=== PATIENT | female | born 1935 | race Caucasian/White ===

== ENCOUNTER 2021-01-10 10:22 | Emergency (ER) | payer OTHER, SELFPAY ==
[2021-01-10] MEDS ORDERED: Fentanyl 100 MCG/2 ML VIAL ONE (11:18)
[2021-01-10] MEDS ORDERED: Ketorolac Tromethamine 15 MG/ML VIAL ONE (11:19)
[2021-01-10 11:32] LABS: #Basophils 0.1 10x3/uL (0.0-0.2); #Monocytes 1.4 10x3/uL (0.0-1.1); #Neutrophils 13.8 10x3/uL (1.5-8.4); %Basophils 0.3 % (0.0-2.0); %Eosinophils 0.2 % (0.0-6.0); %Lymphocytes 6.8 % (18.0-47.0); %Monocytes 8.5 % (0.0-10.0); %Neutrophils 83.5 % (40.0-75.0); Hemoglobin 7.9 g/dL (12.0-15.5); Mean Corpuscular HGB CONC 28.5 g/dL (32.0-36.0); Mean Corpuscular Hemoglobin 18.4 pg (27.0-33.0); Mean Corpuscular Volume 64.6 fl (81.6-98.3); Mean Platelet Volume 8.8 fl (7.4-10.4); Platelet Count 333 10x3/uL (150-450); RBC Distribution Width 19.3 % (11.5-14.5); Red Blood Cell (RBC) Count 4.29 10x6/uL (3.90-5.03); White Blood Cell (WBC) Count 16.5 10x3/uL (3.5-10.5)
[2021-01-10 11:48] LABS: ALT (SGPT) 13 U/L (8-55); AST (SGOT) 12 U/L (5-34); Alkaline Phosphatase 73 U/L (40-110); Anion Gap 17 mmol/L (10-20); BUN (Urea Nitrogen) 14 mg/dL (9.8-20.1); Bilirubin, Total 0.7 mg/dL (0.2-1.2); Calc. Creatinine Clearance 0 mL/min (70-130); Calcium 9.7 mg/dL (7.8-10.44); Carbon Dioxide 20 mmol/L (23-31); Chloride 105 mmol/L (98-107); Globulin 3.6 g/dL (2.4-3.5); Glucose 126 mg/dL (83-110); Potassium 3.8 mmol/L (3.5-5.1); Protein, Total 7.6 g/dL (5.8-8.1); Sodium 138 mmol/L (136-145)
[2021-01-10 12:03] LABS: Anisocytosis SLIGHT = 6-15 cells (100X) (0-5/hpf); Hypochromia SLIGHT = 6-15 cells (100X) (0-5/hpf); Microcytosis MODERATE=15-30 cells (100X) (0-5/hpf); Ovalocytes SLIGHT = 2-5 cells (100X) (0-1/hpf); Polychromasia SLIGHT = 2-3 cells (100X) (0-2/hpf)
[2021-01-10 12:05] LABS: Platelet Morphology Comment Appears Adequate
[2021-01-10 12:06] LABS: Reflex for Review?? YES
[2021-01-10] MEDS ORDERED: Enoxaparin Sodium 80 MG/0.8 ML SYRINGE ONE (13:14)
== END 2021-01-10 14:21 | disposition short-term general hospital (02) ==
LOC: CSHERS 10:22
DX: S22.32XA Fracture of one rib, left side, initial encounter for closed fracture (principal); I26.99 Other pulmonary embolism without acute cor pulmonale; D64.9 Anemia, unspecified; W01.10XA Fall on same level from slipping, tripping and stumbling with subsequent striking against unspecified object, initial encounter
CPT/HCPCS: 71260; 74177; 80053; 85025; 85060; 86850; 86900; 86901; 96372; 96374; 96375; J1650; J1885; J3010

== ENCOUNTER 2022-01-17 10:42 | Outpatient (CLI) | payer MEDICARE ==
[2022-01-17 11:33] LABS: Mean Corpuscular HGB CONC 33.2 g/dL (32.0-36.0); Mean Corpuscular Hemoglobin 30.4 pg (27.0-33.0); Mean Corpuscular Volume 91.4 fl (81.6-98.3); Mean Platelet Volume 8.7 fl (7.4-10.4); Platelet Count 235 10x3/uL (150-450); RBC Distribution Width 13.9 % (11.5-14.5); Red Blood Cell (RBC) Count 4.28 10x6/uL (3.90-5.03)
[2022-01-17 11:36] LABS: INR-International Normal Ratio 0.9; PTT 29.4 sec (22.0-33.0)
[2022-01-17 11:41] LABS: Anion Gap 14 mmol/L (10-20); BUN (Urea Nitrogen) 17 mg/dL (9.8-20.1); Calc. Creatinine Clearance 0 mL/min (70-130); Calcium 9.8 mg/dL (7.8-10.44); Carbon Dioxide 25 mmol/L (23-31); Chloride 106 mmol/L (98-107); Glucose 84 mg/dL (83-110); Potassium 4.3 mmol/L (3.5-5.1); Sodium 141 mmol/L (136-145)
[2022-01-17 21:43] LABS: SARS-CoV-2 PCR by NAA Not Detected (NotDetected)
== END 2022-01-17 10:43 | disposition home or self-care (01) ==
LOC: CSHLAB 10:42
PROVIDERS: ATTEND Specialist
DX: Z01.818 Encounter for other preprocedural examination (principal); Z20.822 Contact with and (suspected) exposure to COVID-19
CPT/HCPCS: 80048; 85027; 85610; 85730; 93005; 93010; U0003; U0005

== ENCOUNTER → 2022-01-20 | Day surgery (SDC) | payer MEDICARE ==
[~2022-01-20] MED LIST: Adenosine 6 MG/2 ML VIAL ONE; Ascorbic Acid 500 mg Chewable Tablet ONE; Aspirin 325 MG TAB ONE; Atropine Sulfate 0.4 mg/1 ml Vial ONE; Clopidogrel Bisulfate 300 MG TAB ONE; Fentanyl 100 MCG/2 ML VIAL ONE; Heparin 10,000 UNITS/ 10 ML VIAL ONE; Iopamidol 300 61% 100 ML VIAL FS ONE; Lidocaine 1% PF 5 ML VIAL ONE; Midazolam HCl 2 mg/2 ml Vial ONE; Nitroglycerin 50 MG/250 ML BOT 250 ML ONE; Ondansetron PF 4 MG/2 ML Vial ONE
== END ==
LOC: CSHSDC 08:55
PROVIDERS: ATTEND Specialist
DX: I11.0 Hypertensive heart disease with heart failure (principal); I50.32 Chronic diastolic (congestive) heart failure; I25.118 Atherosclerotic heart disease of native coronary artery with other forms of angina pectoris; E78.2 Mixed hyperlipidemia; Z95.1 Presence of aortocoronary bypass graft; Z95.5 Presence of coronary angioplasty implant and graft; Z79.899 Other long term (current) drug therapy; Z79.82 Long term (current) use of aspirin
CPT/HCPCS: 92978; 92979; 93459; C1725 ×2; C1753; C1760; C1769; C1874; C1887; C9600; 92928; 99152; 99153; J0153; J0461; J1644; J2250; J2405; J3010

== ENCOUNTER 2022-11-01 17:37 | Inpatient (IN) | payer MEDICARE ==
[2022-11-01 18:20] LABS: #Neutrophils 6.3 10x3/uL (1.5-8.4); %Basophils 0.5 % (0.0-2.0); %Eosinophils 0.1 % (0.0-6.0); %Lymphocytes 6.4 % (18.0-47.0); %Neutrophils 79.6 % (40.0-75.0); Hemoglobin 12.8 g/dL (12.0-15.5); Mean Corpuscular HGB CONC 33.2 g/dL (32.0-36.0); Mean Corpuscular Hemoglobin 29.6 pg (27.0-33.0); Mean Corpuscular Volume 89.4 fl (81.6-98.3); Mean Platelet Volume 8.7 fl (7.4-10.4); Platelet Count 216 10x3/uL (150-450); RBC Distribution Width 13.2 % (11.5-14.5); Red Blood Cell (RBC) Count 4.32 10x6/uL (3.90-5.03); White Blood Cell (WBC) Count 7.9 10x3/uL (3.5-10.5)
[2022-11-01 18:32] LABS: INR-International Normal Ratio 0.9; Prothrombin Time 10.3 sec (9.5-12.1)
[2022-11-01 18:33] LABS: Magnesium 1.8 mg/dL (1.6-2.6)
[2022-11-01 18:38] LABS: ALT (SGPT) 19 U/L (8-55); AST (SGOT) 31 U/L (5-34); Acetaminophen Less than 10.0 mcg/mL (10.0-30.0); Alcohol Less than 10 mg/dL (Less than 10); Alkaline Phosphatase 52 U/L (40-110); Anion Gap 15 mmol/L (10-20); BUN (Urea Nitrogen) 12 mg/dL (9.8-20.1); Bilirubin, Total 0.9 mg/dL (0.2-1.2); CK (CPK) 808 U/L (29-168); Calc. Creatinine Clearance 0 mL/min (70-130); Calcium 9.6 mg/dL (7.8-10.44); Carbon Dioxide 22 mmol/L (23-31); Chloride 106 mmol/L (98-107); Estimated GFR 64; Globulin 3.1 g/dL (2.4-3.5); Glucose 108 mg/dL (83-110); Potassium 3.3 mmol/L (3.5-5.1); Protein, Total 7.1 g/dL (5.8-8.1); Salicylate Less than 8.0 mg/dL (15.0-30.0); Sodium 140 mmol/L (136-145)
[2022-11-01 19:03] LABS: CKMB 3.8 ng/mL (0-6.6)
[2022-11-01 19:18] LABS: SARS-CoV-2 NAA Rapid Test DETECTED (NotDetected)
[2022-11-01 20:11] LABS: Bilirubin Neg (Negative); Blood, Urine 25 (Negative); Clarity Clear (Clear); Glucose, Urine (Dipstick) Normal (Negative); Ketone, Urine 50 mg/dL (Negative); Leukocyte 500 (Negative); Nitrite Negative (Negative); Protein, Urine (Dipstick) 15 mg/dl (Neg-Trace); Specific Gravity, Urine 1.025 (1.005-1.030); Urobilinogen Normal mg/dL (Less than 2)
[2022-11-01 20:21] LABS: Bacteria/HPF 3+ HPF (None Seen); Mucous/LPF 3+ LPF (<2+); RBC/HPF 0-3 HPF (0-3); Squamous Epithelial 0-3 HPF (0-3); Transitional Epithelial 0-3 HPF (None Seen)
[2022-11-01] MEDS ORDERED: cefTRIAXone\\ROCEPHIN 1 GM VIAL ONE (20:37)
[2022-11-01] MEDS ORDERED: Acetaminophen 325 MG TAB ONE (21:28)
[2022-11-01] MEDS ORDERED: Ibuprofen 200 MG TAB ONE (21:55)
[2022-11-01] MEDS ORDERED: Acetaminophen 325 MG TAB PO PRN (22:09)
[2022-11-01 22:15] LABS: CKMB 2.8 ng/mL (0-6.6)
[2022-11-01] MEDS ORDERED: cefTRIAXone\\ROCEPHIN 1 GM in Sodium Chloride 0.9% 100 ML IVPB SCH (22:15)
[2022-11-01] MEDS ORDERED: Ascorbic Acid 500 mg Chewable Tablet PO SCH (22:15)
[2022-11-01] MEDS ORDERED: Aspirin 81 mg Enteric Coated Tablet PO SCH (22:15)
[2022-11-01] MEDS ORDERED: PAXLOVID REQUEST IVPB PRN (22:21)
[2022-11-01] MEDS ORDERED: Cholecalciferol 1,000 UNITS (25 MCG) TAB PO SCH (22:30)
[2022-11-01 23:09] VITALS: BMI 25.9
[2022-11-02] MEDS: Potassium Chloride 20 MEQ TAB PO SCH ×2 (00:10→01:11)
[2022-11-02] MEDS: Lactated Ringer's 1,000 ML IV SCH ×3 (00:10→17:26)
[2022-11-02 05:37] LABS: Hemoglobin 11.4 g/dL (12.0-15.5); Mean Corpuscular HGB CONC 32.7 g/dL (32.0-36.0); Mean Corpuscular Hemoglobin 29.5 pg (27.0-33.0); Mean Corpuscular Volume 90.4 fl (81.6-98.3); Mean Platelet Volume 9.1 fl (7.4-10.4); Platelet Count 176 10x3/uL (150-450); RBC Distribution Width 13.4 % (11.5-14.5); Red Blood Cell (RBC) Count 3.86 10x6/uL (3.90-5.03); White Blood Cell (WBC) Count 5.9 10x3/uL (3.5-10.5)
[2022-11-02 05:44] LABS: Anion Gap 13 mmol/L (10-20); BUN (Urea Nitrogen) 14 mg/dL (9.8-20.1); Calc. Creatinine Clearance 62 mL/min (70-130); Calcium 8.8 mg/dL (7.8-10.44); Carbon Dioxide 20 mmol/L (23-31); Chloride 111 mmol/L (98-107); Estimated GFR 77; Glucose 84 mg/dL (83-110); Potassium 4.1 mmol/L (3.5-5.1); Sodium 140 mmol/L (136-145)
[2022-11-02 07:33] LABS: MDiff Complete? YES
[2022-11-02 07:37] LABS: Lymphocytes 16 % (21-51); Monocytes 11 % (0-10); Neutrophil 73 % (42-75)
[2022-11-02 07:38] LABS: Platelet Morphology Comment Appears Adequate; RBC Morphology Normal
[2022-11-02] MEDS ORDERED: Levothyroxine Sodium 50 MCG TAB PO SCH (08:00)
[2022-11-02] MEDS: Ascorbic Acid 500 mg Chewable Tablet PO SCH (08:17)
[2022-11-02] MEDS: Cholecalciferol 1,000 UNITS (25 MCG) TAB PO SCH (08:17)
[2022-11-02] MEDS: Zinc Sulfate 220 MG CAP PO SCH (08:17)
[2022-11-02] MEDS: Ezetimibe 10 MG TAB PO SCH (08:17)
[2022-11-02] MEDS: NIRMATRELVIR 150 MG/RITONAVIR 100 MG PO SCH ×2 (08:18→21:25)
[2022-11-02] MEDS: Aspirin 81 mg Enteric Coated Tablet PO SCH (08:18)
[2022-11-02] MEDS ORDERED: NIRMATRELVIR 150 MG/RITONAVIR 100 MG PO SCH (09:00)
[2022-11-02] MEDS: cefTRIAXone\\ROCEPHIN 2 GM in Sodium Chloride 0.9% 100 ML IVPB SCH (21:24)
[2022-11-03] MEDS: Lactated Ringer's 1,000 ML IV SCH ×2 (02:38→09:39)
[2022-11-03] MEDS: Levothyroxine Sodium 50 MCG TAB PO SCH (06:30)
[2022-11-03] MEDS: Ascorbic Acid 500 mg Chewable Tablet PO SCH (09:38)
[2022-11-03] MEDS: Aspirin 81 mg Enteric Coated Tablet PO SCH (09:38)
[2022-11-03] MEDS: Cholecalciferol 1,000 UNITS (25 MCG) TAB PO SCH (09:38)
[2022-11-03] MEDS: Zinc Sulfate 220 MG CAP PO SCH (09:39)
[2022-11-03] MEDS: Ezetimibe 10 MG TAB PO SCH (09:39)
[2022-11-03] MEDS: NIRMATRELVIR 150 MG/RITONAVIR 100 MG PO SCH ×2 (09:39→21:29)
[2022-11-03] MEDS: cefTRIAXone\\ROCEPHIN 2 GM in Sodium Chloride 0.9% 100 ML IVPB SCH (21:28)
[2022-11-03 23:58] VITALS: TEMP 98.2
[2022-11-04] MEDS: Levothyroxine Sodium 50 MCG TAB PO SCH (05:21)
[2022-11-04 06:07] LABS: Anion Gap 13 mmol/L (10-20); BUN (Urea Nitrogen) 8 mg/dL (9.8-20.1); CRP (Inflammatory) 1.03 mg/dL (= or < 0.5); Calc. Creatinine Clearance 62 mL/min (70-130); Carbon Dioxide 25 mmol/L (23-31); Chloride 106 mmol/L (98-107); Estimated GFR 77; Glucose 87 mg/dL (83-110); Potassium 3.3 mmol/L (3.5-5.1); Sodium 141 mmol/L (136-145)
[2022-11-04 06:09] LABS: #Eosinphils 0.4 10x3/uL (0.0-0.5); #Monocytes 0.6 10x3/uL (0.0-1.1); #Neutrophils 3.2 10x3/uL (1.5-8.4); %Basophils 0.5 % (0.0-2.0); %Eosinophils 7.4 % (0.0-6.0); %Lymphocytes 25.4 % (18.0-47.0); %Neutrophils 56.3 % (40.0-75.0); Hemoglobin 12.4 g/dL (12.0-15.5); Mean Corpuscular Hemoglobin 29.5 pg (27.0-33.0); Mean Corpuscular Volume 89.3 fl (81.6-98.3); Mean Platelet Volume 8.7 fl (7.4-10.4); Platelet Count 197 10x3/uL (150-450); Red Blood Cell (RBC) Count 4.21 10x6/uL (3.90-5.03); White Blood Cell (WBC) Count 5.7 10x3/uL (3.5-10.5)
[2022-11-04] MEDS: Aspirin 81 mg Enteric Coated Tablet PO SCH (09:21)
[2022-11-04] MEDS: Ezetimibe 10 MG TAB PO SCH (09:21)
[2022-11-04] MEDS: Cholecalciferol 1,000 UNITS (25 MCG) TAB PO SCH (09:21)
[2022-11-04] MEDS: NIRMATRELVIR 150 MG/RITONAVIR 100 MG PO SCH (09:21)
[2022-11-04] MEDS: Ascorbic Acid 500 mg Chewable Tablet PO SCH (09:21)
[2022-11-04] MEDS: Zinc Sulfate 220 MG CAP PO SCH (09:21)
[2022-11-04 12:34] VITALS: BP 132/71
[2022-11-07] MEDS ORDERED: Clopidogrel Bisulfate 75 MG TAB PO SCH (09:00)
[2022-11-07] MEDS ORDERED: Atorvastatin Calcium 40 MG TAB PO SCH (09:00)
== END 2022-11-04 12:21 | disposition home or self-care (01) | DRG 689 ==
LOC: CSHERS 17:37 → CSHTELE 22:11
PROVIDERS: ADMIT Family Medicine; ATTEND Internal Medicine
PROC: 8E0ZXY6 Isolation (ICD-10-PCS; principal; 2022-11-01)
PROC: XW0DXF5 Introduction of Other New Technology Therapeutic Substance into Mouth and Pharynx, External Approach, New Technology Group 5 (ICD-10-PCS; 2022-11-02)
DX: N10 Acute pyelonephritis (principal); U07.1 COVID-19; I50.32 Chronic diastolic (congestive) heart failure; I25.10 Atherosclerotic heart disease of native coronary artery without angina pectoris; E87.6 Hypokalemia; I11.0 Hypertensive heart disease with heart failure; Z88.0 Allergy status to penicillin; Z91.040 Latex allergy status; Z79.899 Other long term (current) drug therapy; Z79.890 Hormone replacement therapy; Z90.49 Acquired absence of other specified parts of digestive tract; Z95.1 Presence of aortocoronary bypass graft; Z95.5 Presence of coronary angioplasty implant and graft; Z86.711 Personal history of pulmonary embolism; Z87.891 Personal history of nicotine dependence; Z80.0 Family history of malignant neoplasm of digestive organs; Z79.02 Long term (current) use of antithrombotics/antiplatelets; E78.00 Pure hypercholesterolemia, unspecified
CPT/HCPCS: 36415; 36416; 51701; 70450; 71045; 80048; 80053; 80307; 81003; 81015; 82550; 82553; 83605; 83735; 83880; 84145; 84443; 84484; 85025; 85610; 85730; 86140; 87040; 87086; 93005; 93010; 93306; 96365; J0696; J1650; J3490; J7120; U0002

== ENCOUNTER 2023-04-04 19:28 | Inpatient (IN) | payer MEDICARE ==
[2023-04-04 19:54] LABS: #Basophils 0.1 10x3/uL (0.0-0.2); #Monocytes 0.8 10x3/uL (0.0-1.1); #Neutrophils 8.5 10x3/uL (1.5-8.4); %Basophils 0.5 % (0.0-2.0); %Eosinophils 0.4 % (0.0-6.0); %Lymphocytes 8.2 % (18.0-47.0); %Monocytes 7.8 % (0.0-10.0); %Neutrophils 82.6 % (40.0-75.0); Hematocrit 38.6 % (34.9-44.5); Hemoglobin 12.3 g/dL (12.0-15.5); Mean Corpuscular HGB CONC 31.9 g/dL (32.0-36.0); Mean Corpuscular Hemoglobin 25.8 pg (27.0-33.0); Mean Corpuscular Volume 80.9 fl (81.6-98.3); Mean Platelet Volume 8.8 fl (7.4-10.4); Platelet Count 330 10x3/uL (150-450); RBC Distribution Width 15.2 % (11.5-14.5); Red Blood Cell (RBC) Count 4.77 10x6/uL (3.90-5.03); White Blood Cell (WBC) Count 10.3 10x3/uL (3.5-10.5)
[2023-04-04 20:04] LABS: ALT (SGPT) 11 U/L (8-55); AST (SGOT) 18 U/L (5-34); Albumin 4.2 g/dL (3.4-4.8); Alkaline Phosphatase 70 U/L (40-110); Anion Gap 18 mmol/L (10-20); BUN (Urea Nitrogen) 9 mg/dL (9.8-20.1); Bilirubin, Total 1.1 mg/dL (0.2-1.2); Calc. Creatinine Clearance 0 mL/min (70-130); Calcium 9.8 mg/dL (7.8-10.44); Carbon Dioxide 23 mmol/L (23-31); Chloride 101 mmol/L (98-107); Estimated GFR 70; Globulin 3.7 g/dL (2.4-3.5); Glucose 126 mg/dL (83-110); Potassium 4.1 mmol/L (3.5-5.1); Protein, Total 7.9 g/dL (5.8-8.1); Sodium 138 mmol/L (136-145)
[2023-04-04 20:26] LABS: CKMB 1.4 ng/mL (0-6.6)
[2023-04-04] MEDS ORDERED: Ondansetron PF 4 MG/2 ML Vial IVP PRN (21:24)
[2023-04-04 21:46] LABS: Troponin I 0.045 ng/mL (< 0.028)
[2023-04-04 23:06] VITALS: BMI 24.3
[2023-04-04 23:40] LABS: Lactic Acid 1.1 mmol/L (0.5-2.2)
[2023-04-04] MEDS ORDERED: cefTRIAXone\\ROCEPHIN 1 GM in Sodium Chloride 0.9% 100 ML IVPB SCH (23:59)
[2023-04-05 02:41] LABS: Bilirubin Neg (Negative); Blood, Urine Negative (Negative); Clarity Clear (Clear); Glucose, Urine (Dipstick) Normal (Negative); Ketone, Urine 15 mg/dL (Negative); Leukocyte Negative (Negative); Nitrite Negative (Negative); Protein, Urine (Dipstick) 15 mg/dl (Neg-Trace); pH, Urine 6.5 (5.0-9.0)
[2023-04-05 02:49] LABS: Bacteria/HPF None Seen HPF (None Seen); RBC/HPF 0-3 HPF (0-3); Squamous Epithelial 0-3 HPF (0-3); WBC/HPF 0-3 HPF (0-3)
[2023-04-05 03:31] LABS: #Eosinphils 0.1 10x3/uL (0.0-0.5); #Neutrophils 6.9 10x3/uL (1.5-8.4); %Basophils 0.4 % (0.0-2.0); %Eosinophils 0.8 % (0.0-6.0); %Lymphocytes 11.2 % (18.0-47.0); %Monocytes 10.9 % (0.0-10.0); %Neutrophils 76.4 % (40.0-75.0); Hematocrit 36.1 % (34.9-44.5); Hemoglobin 11.4 g/dL (12.0-15.5); Mean Corpuscular HGB CONC 31.6 g/dL (32.0-36.0); Mean Corpuscular Hemoglobin 25.9 pg (27.0-33.0); Platelet Count 298 10x3/uL (150-450); RBC Distribution Width 15.2 % (11.5-14.5)
[2023-04-05 03:36] LABS: ALT (SGPT) 8 U/L (8-55); AST (SGOT) 13 U/L (5-34); Albumin 3.8 g/dL (3.4-4.8); Alkaline Phosphatase 61 U/L (40-110); Anion Gap 15 mmol/L (10-20); BUN (Urea Nitrogen) 9 mg/dL (9.8-20.1); Bilirubin, Total 0.9 mg/dL (0.2-1.2); Calc. Creatinine Clearance 58 mL/min (70-130); Calcium 9.7 mg/dL (7.8-10.44); Carbon Dioxide 27 mmol/L (23-31); Chloride 103 mmol/L (98-107); Estimated GFR 73; Globulin 3.5 g/dL (2.4-3.5); Glucose 116 mg/dL (83-110); Potassium 3.4 mmol/L (3.5-5.1); Protein, Total 7.3 g/dL (5.8-8.1); Sodium 142 mmol/L (136-145)
[2023-04-05 03:44] LABS: Troponin I 0.045 ng/mL (< 0.028)
[2023-04-05] MEDS: Levothyroxine Sodium 50 MCG TAB PO SCH (05:36)
[2023-04-05] MEDS ORDERED: Potassium Chloride 20 MEQ TAB PO SCH (08:00)
[2023-04-05] MEDS: Ezetimibe 10 MG TAB PO SCH (08:59)
[2023-04-05] MEDS: Cetirizine HCl 5 MG/5 ML UDCUP PO SCH (08:59)
[2023-04-05] MEDS: Famotidine 20 MG TAB PO SCH ×2 (08:59→20:26)
[2023-04-05] MEDS: Atenolol 25 MG TAB PO SCH ×2 (08:59→20:26)
[2023-04-05 10:53] LABS: Troponin I 0.041 ng/mL (< 0.028)
[2023-04-05] MEDS: Potassium Chloride 20 MEQ TAB PO SCH (16:28)
[2023-04-05] MEDS ORDERED: Morphine 2 MG/ML VIAL SLOW IVP PRN (16:51)
[2023-04-05] MEDS: HYDROcodone/Acetaminophen 5/325 mg Tablet PO PRN (19:32)
[2023-04-05] MEDS: Acetaminophen 325 MG TAB PO PRN (20:26)
[2023-04-06 04:25] LABS: Anion Gap 16 mmol/L (10-20); BUN (Urea Nitrogen) 11 mg/dL (9.8-20.1); Calc. Creatinine Clearance 57 mL/min (70-130); Calcium 9.8 mg/dL (7.8-10.44); Carbon Dioxide 26 mmol/L (23-31); Chloride 104 mmol/L (98-107); Estimated GFR 72; Glucose 92 mg/dL (83-110); Potassium 3.7 mmol/L (3.5-5.1); Sodium 142 mmol/L (136-145)
[2023-04-06 04:26] LABS: #Eosinphils 0.2 10x3/uL (0.0-0.5); #Monocytes 1.1 10x3/uL (0.0-1.1); #Neutrophils 5.8 10x3/uL (1.5-8.4); %Basophils 0.4 % (0.0-2.0); %Eosinophils 2.8 % (0.0-6.0); %Lymphocytes 15.9 % (18.0-47.0); %Monocytes 12.6 % (0.0-10.0); %Neutrophils 67.8 % (40.0-75.0); Hematocrit 35.4 % (34.9-44.5); Hemoglobin 11.1 g/dL (12.0-15.5); Mean Corpuscular HGB CONC 31.4 g/dL (32.0-36.0); Mean Corpuscular Hemoglobin 25.8 pg (27.0-33.0); Mean Corpuscular Volume 82.3 fl (81.6-98.3); Mean Platelet Volume 9.5 fl (7.4-10.4); Platelet Count 281 10x3/uL (150-450); RBC Distribution Width 15.4 % (11.5-14.5); White Blood Cell (WBC) Count 8.5 10x3/uL (3.5-10.5)
[2023-04-06] MEDS: HYDROcodone/Acetaminophen 5/325 mg Tablet PO PRN ×2 (05:30→14:46)
[2023-04-06] MEDS: Atenolol 25 MG TAB PO SCH ×2 (05:31→20:49)
[2023-04-06] MEDS: Levothyroxine Sodium 50 MCG TAB PO SCH (05:31)
[2023-04-06] MEDS: Famotidine 20 MG TAB PO SCH ×2 (08:55→20:49)
[2023-04-06] MEDS: Cetirizine HCl 5 MG/5 ML UDCUP PO SCH (08:55)
[2023-04-06] MEDS: Ezetimibe 10 MG TAB PO SCH (08:55)
[2023-04-06] MEDS: Spironolactone 25 MG TAB PO SCH (08:55)
[2023-04-06] MEDS: Potassium Chloride 20 MEQ TAB PO SCH (11:59)
[2023-04-06] MEDS: Dextrose 5 %-0.45 % NaCl 1,000 ML IV SCH (17:34)
[2023-04-06] MEDS: Acetaminophen 325 MG TAB PO PRN (20:49)
[2023-04-07] MEDS: HYDROcodone/Acetaminophen 5/325 mg Tablet PO PRN ×3 (04:21→18:48)
[2023-04-07] MEDS: Levothyroxine Sodium 50 MCG TAB PO SCH (05:52)
[2023-04-07] MEDS: Dextrose 5 %-0.45 % NaCl 1,000 ML IV SCH (06:06)
[2023-04-07] MEDS: Cetirizine HCl 5 MG/5 ML UDCUP PO SCH (08:45)
[2023-04-07] MEDS: Famotidine 20 MG TAB PO SCH ×2 (08:45→21:25)
[2023-04-07] MEDS: Ezetimibe 10 MG TAB PO SCH (08:45)
[2023-04-07] MEDS: Atenolol 25 MG TAB PO SCH ×2 (08:46→21:24)
[2023-04-07] MEDS: Losartan 25 MG TAB PO SCH (08:46)
[2023-04-07] MEDS: Spironolactone 25 MG TAB PO SCH (08:46)
[2023-04-07] MEDS: NIFEdipine XL 30 MG TAB PO SCH (09:27)
[2023-04-07] MEDS: Potassium Chloride 20 MEQ TAB PO SCH (12:07)
[2023-04-08] MEDS: Dextrose 5 %-0.45 % NaCl 1,000 ML IV SCH ×3 (01:26→21:48)
[2023-04-08] MEDS: Levothyroxine Sodium 50 MCG TAB PO SCH (05:46)
[2023-04-08] MEDS: NIFEdipine XL 30 MG TAB PO SCH (09:46)
[2023-04-08] MEDS: Famotidine 20 MG TAB PO SCH ×2 (09:46→20:21)
[2023-04-08] MEDS: Atenolol 25 MG TAB PO SCH ×2 (09:46→20:21)
[2023-04-08] MEDS: Ezetimibe 10 MG TAB PO SCH (09:46)
[2023-04-08] MEDS: Spironolactone 25 MG TAB PO SCH (09:47)
[2023-04-08] MEDS: Cetirizine HCl 5 MG/5 ML UDCUP PO SCH (09:47)
[2023-04-08] MEDS: Losartan 25 MG TAB PO SCH (09:47)
[2023-04-08] MEDS: HYDROcodone/Acetaminophen 5/325 mg Tablet PO PRN ×2 (10:33→17:44)
[2023-04-08] MEDS: Potassium Chloride 20 MEQ TAB PO SCH (12:37)
[2023-04-09 03:17] LABS: #Eosinphils 0.4 10x3/uL (0.0-0.5); #Monocytes 0.6 10x3/uL (0.0-1.1); #Neutrophils 3.4 10x3/uL (1.5-8.4); %Basophils 0.7 % (0.0-2.0); %Eosinophils 6.4 % (0.0-6.0); %Lymphocytes 22.5 % (18.0-47.0); %Monocytes 9.9 % (0.0-10.0); %Neutrophils 60.3 % (40.0-75.0); Hematocrit 38.6 % (34.9-44.5); Hemoglobin 12.1 g/dL (12.0-15.5); Mean Corpuscular HGB CONC 31.3 g/dL (32.0-36.0); Mean Corpuscular Hemoglobin 25.7 pg (27.0-33.0); Mean Corpuscular Volume 82.1 fl (81.6-98.3); Mean Platelet Volume 9.2 fl (7.4-10.4); Platelet Count 346 10x3/uL (150-450); RBC Distribution Width 14.7 % (11.5-14.5); White Blood Cell (WBC) Count 5.7 10x3/uL (3.5-10.5)
[2023-04-09 03:47] LABS: Anion Gap 15 mmol/L (10-20); BUN (Urea Nitrogen) 9 mg/dL (9.8-20.1); Calc. Creatinine Clearance 59 mL/min (70-130); Calcium 9.8 mg/dL (7.8-10.44); Carbon Dioxide 23 mmol/L (23-31); Chloride 102 mmol/L (98-107); Estimated GFR 76; Glucose 114 mg/dL (83-110); Potassium 3.2 mmol/L (3.5-5.1); Sodium 137 mmol/L (136-145)
[2023-04-09] MEDS: Levothyroxine Sodium 50 MCG TAB PO SCH (05:58)
[2023-04-09] MEDS: HYDROcodone/Acetaminophen 5/325 mg Tablet PO PRN ×3 (06:28→23:48)
[2023-04-09] MEDS ORDERED: Electrolyte Replacement Protocol 1 EACH FS SCH (08:15)
[2023-04-09] MEDS: Cetirizine HCl 5 MG/5 ML UDCUP PO SCH (08:49)
[2023-04-09] MEDS: Ezetimibe 10 MG TAB PO SCH (08:49)
[2023-04-09] MEDS: Losartan 25 MG TAB PO SCH (08:49)
[2023-04-09] MEDS: Atenolol 25 MG TAB PO SCH ×2 (08:50→21:34)
[2023-04-09] MEDS: Famotidine 20 MG TAB PO SCH ×2 (08:50→21:36)
[2023-04-09] MEDS: NIFEdipine XL 30 MG TAB PO SCH (08:50)
[2023-04-09] MEDS: Spironolactone 25 MG TAB PO SCH (08:50)
[2023-04-09] MEDS ORDERED: Potassium Chloride 20 MEQ TAB PO SCH (09:00)
[2023-04-09] MEDS ORDERED: Magnesium 2 GM/50 ML(in water) 2 GM in Premix Bag 1 BAG IVPB SCH (09:00)
[2023-04-09] MEDS ORDERED: Polyethylene Glycol 3350 17 GM Packet PO PRN (10:39)
[2023-04-09] MEDS: Potassium Chloride 20 MEQ TAB PO SCH (12:11)
[2023-04-09] MEDS: Dextrose 5 %-0.45 % NaCl 1,000 ML IV SCH ×2 (12:11→17:47)
[2023-04-09] MEDS: Thiamine 100 MG TAB PO SCH (21:34)
[2023-04-09] MEDS: Senokot S 8.6-50 MG TAB PO SCH (21:34)
[2023-04-09] MEDS: Multivit, Therapeutic 1 TAB PO SCH (21:36)
[2023-04-09] MEDS: Apixaban 5 MG TAB PO SCH (21:36)
[2023-04-09] MEDS: Folic Acid 1 MG TAB PO SCH (21:36)
[2023-04-09] MEDS: Cyanocobalamin (Vitamin B-12) 1,000 MCG TAB PO SCH (21:36)
[2023-04-10 03:35] LABS: #Eosinphils 0.3 10x3/uL (0.0-0.5); #Monocytes 0.7 10x3/uL (0.0-1.1); #Neutrophils 4.3 10x3/uL (1.5-8.4); %Basophils 0.4 % (0.0-2.0); %Lymphocytes 21.2 % (18.0-47.0); %Monocytes 9.9 % (0.0-10.0); %Neutrophils 63.4 % (40.0-75.0); Hematocrit 34.1 % (34.9-44.5); Hemoglobin 10.5 g/dL (12.0-15.5); Mean Corpuscular HGB CONC 30.8 g/dL (32.0-36.0); Mean Corpuscular Hemoglobin 25.3 pg (27.0-33.0); Mean Corpuscular Volume 82.2 fl (81.6-98.3); Mean Platelet Volume 9.2 fl (7.4-10.4); Platelet Count 332 10x3/uL (150-450); RBC Distribution Width 14.9 % (11.5-14.5); Red Blood Cell (RBC) Count 4.15 10x6/uL (3.90-5.03); White Blood Cell (WBC) Count 6.8 10x3/uL (3.5-10.5)
[2023-04-10 03:43] LABS: Anion Gap 14 mmol/L (10-20); BUN (Urea Nitrogen) 7 mg/dL (9.8-20.1); Calc. Creatinine Clearance 56 mL/min (70-130); Calcium 9.3 mg/dL (7.8-10.44); Carbon Dioxide 23 mmol/L (23-31); Chloride 103 mmol/L (98-107); Estimated GFR 71; Glucose 112 mg/dL (83-110); Potassium 4.2 mmol/L (3.5-5.1); Sodium 136 mmol/L (136-145)
[2023-04-10 03:56] LABS: Magnesium 1.9 mg/dL (1.6-2.6); Phosphorus 3.2 mg/dL (2.3-4.7)
[2023-04-10] MEDS: Levothyroxine Sodium 50 MCG TAB PO SCH (05:39)
[2023-04-10] MEDS: HYDROcodone/Acetaminophen 5/325 mg Tablet PO PRN (05:39)
[2023-04-10] MEDS: Dextrose 5 %-0.45 % NaCl 1,000 ML IV SCH (06:46)
[2023-04-10] MEDS ORDERED: Magnesium 2 GM/50 ML(in water) 2 GM in Premix Bag 1 BAG IVPB SCH (08:00)
[2023-04-10] MEDS: Losartan 25 MG TAB PO SCH (08:50)
[2023-04-10] MEDS: Famotidine 20 MG TAB PO SCH ×2 (08:50→21:04)
[2023-04-10] MEDS: Spironolactone 25 MG TAB PO SCH (08:53)
[2023-04-10] MEDS: Atenolol 25 MG TAB PO SCH ×2 (08:53→21:03)
[2023-04-10] MEDS: Ezetimibe 10 MG TAB PO SCH (08:53)
[2023-04-10] MEDS: Senokot S 8.6-50 MG TAB PO SCH ×2 (08:54→21:03)
[2023-04-10] MEDS: NIFEdipine XL 30 MG TAB PO SCH (08:54)
[2023-04-10] MEDS: Cetirizine HCl 5 MG/5 ML UDCUP PO SCH (08:55)
[2023-04-10] MEDS: Apixaban 5 MG TAB PO SCH ×2 (08:55→21:03)
[2023-04-10] MEDS: Potassium Chloride 20 MEQ TAB PO SCH (15:36)
[2023-04-10] MEDS: Cyanocobalamin (Vitamin B-12) 1,000 MCG TAB PO SCH (21:03)
[2023-04-10] MEDS: Thiamine 100 MG TAB PO SCH (21:03)
[2023-04-10] MEDS: Multivit, Therapeutic 1 TAB PO SCH (21:03)
[2023-04-10] MEDS: Folic Acid 1 MG TAB PO SCH (21:03)
[2023-04-11] MEDS: Dextrose 5 %-0.45 % NaCl 1,000 ML IV SCH (00:56)
[2023-04-11] MEDS: HYDROcodone/Acetaminophen 5/325 mg Tablet PO PRN (01:33)
[2023-04-11 04:26] VITALS: TEMP 97.7
[2023-04-11 05:11] LABS: #Basophils 0.1 10x3/uL (0.0-0.2); #Eosinphils 0.3 10x3/uL (0.0-0.5); #Monocytes 0.8 10x3/uL (0.0-1.1); #Neutrophils 3.7 10x3/uL (1.5-8.4); %Basophils 0.8 % (0.0-2.0); %Eosinophils 5.1 % (0.0-6.0); %Lymphocytes 26.7 % (18.0-47.0); %Monocytes 11.7 % (0.0-10.0); %Neutrophils 55.4 % (40.0-75.0); Hematocrit 34.2 % (34.9-44.5); Hemoglobin 10.8 g/dL (12.0-15.5); Mean Corpuscular HGB CONC 31.6 g/dL (32.0-36.0); Mean Corpuscular Hemoglobin 25.7 pg (27.0-33.0); Mean Corpuscular Volume 81.4 fl (81.6-98.3); Platelet Count 310 10x3/uL (150-450); RBC Distribution Width 14.8 % (11.5-14.5); White Blood Cell (WBC) Count 6.7 10x3/uL (3.5-10.5)
[2023-04-11 05:30] LABS: Anion Gap 13 mmol/L (10-20); BUN (Urea Nitrogen) 6 mg/dL (9.8-20.1); Calc. Creatinine Clearance 65 mL/min (70-130); Calcium 9.4 mg/dL (7.8-10.44); Carbon Dioxide 22 mmol/L (23-31); Chloride 104 mmol/L (98-107); Estimated GFR 85; Glucose 97 mg/dL (83-110); Potassium 3.2 mmol/L (3.5-5.1); Sodium 136 mmol/L (136-145)
[2023-04-11] MEDS: Levothyroxine Sodium 50 MCG TAB PO SCH (07:42)
[2023-04-11] MEDS ORDERED: Potassium Chloride 20 MEQ TAB PO SCH (08:00)
[2023-04-11 08:45] VITALS: BP 129/77
[2023-04-11] MEDS: Cetirizine HCl 5 MG/5 ML UDCUP PO SCH (11:33)
[2023-04-11] MEDS: Ezetimibe 10 MG TAB PO SCH (11:34)
[2023-04-11] MEDS: Atenolol 25 MG TAB PO SCH (11:34)
[2023-04-11] MEDS: NIFEdipine XL 30 MG TAB PO SCH (11:34)
[2023-04-11] MEDS: Losartan 25 MG TAB PO SCH (11:34)
[2023-04-11] MEDS: Apixaban 5 MG TAB PO SCH (11:34)
[2023-04-11] MEDS: Famotidine 20 MG TAB PO SCH (11:34)
[2023-04-11] MEDS: Senokot S 8.6-50 MG TAB PO SCH (11:35)
[2023-04-11] MEDS: Spironolactone 25 MG TAB PO SCH (11:45)
== END 2023-04-11 12:10 | disposition home health service (06) | DRG 562 ==
LOC: CSHERS 19:28 → CSHTELE 21:02 → OBSVTOIN 04-06 09:02
PROVIDERS: ADMIT Internal Medicine; ATTEND Internal Medicine
DX: S82.832A Other fracture of upper and lower end of left fibula, initial encounter for closed fracture (principal); I21.A1 Myocardial infarction type 2; I13.0 Hypertensive heart and chronic kidney disease with heart failure and stage 1 through stage 4 chronic kidney disease, or unspecified chronic kidney disease; I82.412 Acute embolism and thrombosis of left femoral vein; I50.32 Chronic diastolic (congestive) heart failure; I25.118 Atherosclerotic heart disease of native coronary artery with other forms of angina pectoris; E83.42 Hypomagnesemia; S82.55XA Nondisplaced fracture of medial malleolus of left tibia, initial encounter for closed fracture; S82.845A Nondisplaced bimalleolar fracture of left lower leg, initial encounter for closed fracture; E87.6 Hypokalemia; N18.2 Chronic kidney disease, stage 2 (mild); E03.9 Hypothyroidism, unspecified; F41.9 Anxiety disorder, unspecified; F32.A Depression, unspecified; Z99.3 Dependence on wheelchair; Z86.718 Personal history of other venous thrombosis and embolism; Z95.1 Presence of aortocoronary bypass graft; Z91.040 Latex allergy status; Z88.0 Allergy status to penicillin; Z79.890 Hormone replacement therapy; Z79.2 Long term (current) use of antibiotics; Z79.899 Other long term (current) drug therapy; Z85.828 Personal history of other malignant neoplasm of skin; Z82.49 Family history of ischemic heart disease and other diseases of the circulatory system; E78.2 Mixed hyperlipidemia; I73.9 Peripheral vascular disease, unspecified
CPT/HCPCS: 36415; 51701; 70450; 71045; 72125; 80048; 80053; 81001; 82553; 83605; 83735; 83880; 84100; 84145; 84484; 85025; 87040; 87086; 93005; 96374; G0378; J0696; J3475; J3490; J7042

== ENCOUNTER → 2024-02-29 | Day surgery (SDC) | payer MEDICARE ==
[~2024-02-29] MED LIST changes: -Adenosine 6 MG/2 ML VIAL ONE; +Adenosine 6 mg (2 mL) VIAL ONE; -Atropine Sulfate 0.4 mg/1 ml Vial ONE; -Clopidogrel Bisulfate 300 MG TAB ONE; -Fentanyl 100 MCG/2 ML VIAL ONE; +Lidocaine 1% (PF) 30 ML VIAL ONE; -Lidocaine 1% PF 5 ML VIAL ONE; +Nitroglycerin 50 MG/250 ML BOT 0 ML ONE; -Nitroglycerin 50 MG/250 ML BOT 250 ML ONE; -Ondansetron PF 4 MG/2 ML Vial ONE; +fentaNYL 50 mcg/mL 1 mL Vial ONE
[2024-02-29 09:54] LABS: #Basophils 0.06 10x3/uL (0.0-0.2); #Eosinphils 0.39 10x3/uL (0.0-0.5); #Monocytes 0.51 10x3/uL (0.0-1.1); #Neutrophils 3.91 10x3/uL (1.5-8.4); %Basophils 0.9 % (0.0-2.0); %Lymphocytes 24.5 % (18.0-47.0); %Monocytes 7.9 % (0.0-10.0); %Neutrophils 60.5 % (40.0-75.0); Hemoglobin 13.4 g/dL (12.0-15.5); Mean Corpuscular HGB CONC 32.7 g/dL (32.0-36.0); Mean Corpuscular Hemoglobin 29.3 pg (27.0-33.0); Mean Corpuscular Volume 89.5 fL (81.6-98.3); Mean Platelet Volume 8.6 fL (7.4-10.4); Platelet Count 258 10x3/uL (150-450); RBC Distribution Width 13.2 % (11.5-14.5); Red Blood Cell (RBC) Count 4.58 10x6/uL (3.90-5.03); White Blood Cell (WBC) Count 6.5 10x3/uL (3.5-10.5)
[2024-02-29 10:01] LABS: PTT 29.6 sec (22.0-33.0); Prothrombin Time 10.7 sec (9.5-12.1)
[2024-02-29 10:12] LABS: ALT (SGPT) 8 U/L (8-55); AST (SGOT) 11 U/L (5-34); Albumin 3.9 g/dL (3.4-4.8); Alkaline Phosphatase 52 U/L (40-110); Anion Gap 12 mmol/L (10-20); BUN (Urea Nitrogen) 15 mg/dL (9.8-20.1); Bilirubin, Total 0.5 mg/dL (0.2-1.2); Calc. Creatinine Clearance 0 mL/min (70-130); Calcium 9.6 mg/dL (7.8-10.44); Carbon Dioxide 25 mmol/L (23-31); Chloride 108 mmol/L (98-107); Estimated GFR 56; Globulin 3.6 g/dL (2.4-3.5); Glucose 93 mg/dL (83-110); Potassium 4.1 mmol/L (3.5-5.1); Protein, Total 7.5 g/dL (5.8-8.1); Sodium 141 mmol/L (136-145)
[2024-02-29 10:35] VITALS: BP 143/69; TEMP 98.6
== END ==
LOC: CSHSDC 08:55
PROVIDERS: ATTEND Specialist
PROC: 4A023N7 Measurement of Cardiac Sampling and Pressure, Left Heart, Percutaneous Approach (ICD-10-PCS; principal; 2024-02-29)
PROC: B2050ZZ Plain Radiography of Left Heart using High Osmolar Contrast (ICD-10-PCS; 2024-02-29)
DX: I25.118 Atherosclerotic heart disease of native coronary artery with other forms of angina pectoris (principal); I11.0 Hypertensive heart disease with heart failure; I50.32 Chronic diastolic (congestive) heart failure; Z95.5 Presence of coronary angioplasty implant and graft; Z95.1 Presence of aortocoronary bypass graft; E78.2 Mixed hyperlipidemia; I47.10 Supraventricular tachycardia, unspecified; I65.09 Occlusion and stenosis of unspecified vertebral artery; I34.0 Nonrheumatic mitral (valve) insufficiency; J45.909 Unspecified asthma, uncomplicated; I26.99 Other pulmonary embolism without acute cor pulmonale; K21.9 Gastro-esophageal reflux disease without esophagitis; E03.9 Hypothyroidism, unspecified; R73.03 Prediabetes; I10 Essential (primary) hypertension; D50.9 Iron deficiency anemia, unspecified; Z90.710 Acquired absence of both cervix and uterus; Z90.49 Acquired absence of other specified parts of digestive tract; Z98.890 Other specified postprocedural states; Z88.1 Allergy status to other antibiotic agents; Z88.0 Allergy status to penicillin; Z91.040 Latex allergy status; Z88.8 Allergy status to other drugs, medicaments and biological substances; Z79.899 Other long term (current) drug therapy
CPT/HCPCS: 80053; 85025; 85610; 85730; 93459; C1760; C1769; J1644; J2001; J2250; J3010; Q9967; 99152; 99153; J0153